=== PATIENT | male | born 1990 ===

== ENCOUNTER → 2022-08-28 08:23 | Outpatient (CLI) | payer OTHER, SELFPAY ==
--- NOTE | 2022-08-28 | DI.MRI.S_ITS ---
PROCEDURE: MR ANKLE LT WO CON INDICATIONS: Peroneal tendinitis, left leg TECHNIQUE: Noncontrast sagittal T1 spin echo and T2 fast spin echo with fat saturation, axial proton density fast spin echo and T2 fast spin echo with fat saturation, coronal T1 spin echo and T2 fast spin echo with fat saturation through the ankle/hindfoot. COMPARISON: None. FINDINGS: Image quality: Excellent. Bones and joints: No bone marrow contusions or fractures. No hindfoot coalitions. No osteochondral injuries of the talar dome. No pathologic joint effusions. Medial structures: The posterior tibialis, flexor digitorum longus, and flexor hallucis longus tendons are intact. The posterior tibial neurovascular bundle appears normal within the tarsal tunnel, without extrinsic mass effect. The deep layer (anterior and posterior tibiotalar ligaments) and superficial layer (tibionavicular, tibiospring, and tibiocalcaneal ligaments) of the deltoid ligament appear normal. The spring ligament components (superomedial calcaneonavicular, medioplantar oblique calcaneonavicular, and inferoplantar longitudinal ligaments) are intact. Lateral structures: The anterior talofibular ligament is thickened with intrasubstance T2 hyperintense signal. The calcaneofibular, and posterior talofibular ligaments appear intact. More superiorly, the anterior and posterior tibiofibular ligaments appear intact, as is the intermalleolar ligament. The tibiofibular syndesmosis is normal in width at 2 mm or less. Thickened peroneus longus and brevis tendons are noted with intrasubstance T2 hyperintense signal extending from the level of lateral malleolus tip to calcaneocuboid joint. Adjacent bony peroneal tubercle and retrotrochlear prominence are normal in size. The sinus tarsi demonstrates normal fatty signal, without edema, fibrosis, or cyst formation. Visualized sinus tarsi components (cervical ligament, interosseous talocalcaneal ligament, roots of the inferior extensor retinaculum) appear normal. The calcaneonavicular and calcaneocuboid components of the bifurcate ligament appear intact. The dorsal calcaneocuboid ligament appears intact. Anterior structures: The tibialis anterior, extensor hallucis longus, and extensor digitorum longus tendons appear intact. The dorsal talonavicular ligament appears intact. Posterior and plantar structures: Achilles tendon is intact. Medial and lateral bands of the plantar fascia are of normal thickness. No abductor digiti quinti muscle atrophy to suggest Sandoval neuropathy. IMPRESSION: 1. No marrow edema. No fracture or dislocation. No osteochondral injuries of talar dome. 2. Tendinosis and low-grade intrasubstance partial-thickness tear involving peroneus longus and brevis tendons as above. 3. Low-grade anterior talofibular ligament sprain/intrasubstance partial-thickness tear. Dictated by: Varinder Mathias M.D. on 08/28/2022 at 9:39 Approved by: Varinder Mathias M.D. on 08/28/2022 at 10:19
== END ==
PROVIDERS: Referring Provider Podiatrist; Visit Provider Podiatrist
DX: S93.492A Sprain of other ligament of left ankle, initial encounter (principal); S96.812A Strain of other specified muscles and tendons at ankle and foot level, left foot, initial encounter; M76.72 Peroneal tendinitis, left leg; M79.672 Pain in left foot
CPT/HCPCS: 73721

== ENCOUNTER → 2022-09-03 07:17 | Outpatient (CLI) | payer OTHER, SELFPAY ==
--- NOTE | 2022-09-03 | DI.MRI.S_ITS ---
PROCEDURE: MR HAND RT WO CON INDICATIONS: RIGHT THUMB INJURY TECHNIQUE: Noncontrast oblique coronal T1 spin echo and T2 fast spin echo with fat saturation, axial and sagittal T2 fast spin echo with fat saturation, through the thumb. COMPARISON: None. FINDINGS: Image quality: Excellent. Bones: The bones are normally aligned, without marrow contusions or fractures. No intra-osseous lesions. Mild degenerative changes are seen at the 1st carpometacarpal joint. Soft tissues: The radial and ulnar collateral ligaments are intact. The extensor pollicis brevis and longus tendons are intact. There is mild tenosynovitis of the flexor pollicis longus tendon at the level of the 1st proximal phalangeal base. IMPRESSION: 1. No acute trabecular bone injury. The collateral ligaments and joint capsule at the 1st metacarpophalangeal joint are intact. 2. Mild flexor pollicis longus tenosynovitis at the level of the 1st metacarpal base. Approved by: Turner Brenner M.D. on 09/03/2022 at 14:07
== END ==
PROVIDERS: Referring Provider Student in an Organized Health Care Education/Training Program; Visit Provider Student in an Organized Health Care Education/Training Program
DX: S69.91XA Unspecified injury of right wrist, hand and finger(s), initial encounter (principal); M65.841 Other synovitis and tenosynovitis, right hand; W19.XXXA Unspecified fall, initial encounter
CPT/HCPCS: 73218